=== PATIENT | female | born 1950 | race Caucasian/White ===

== ENCOUNTER → 2024-09-11 | Outpatient (CLI) | payer MEDICARE, BC, SELFPAY ==
--- NOTE | 2024-09-11 12:13 | MRI_ITS ---
PROCEDURE: SPINE LUMBAR (ROUTINE) 09/11/2024 REASON FOR EXAM: RADICULOPATHY TECHNIQUE: Multiplanar and multisequence images were obtained without IV contrast administration. COMPARISON: None FINDINGS: There is 25% loss of vertebral body height at L1 on the left aspect, with chronic features. There is grade 1 spondylolisthesis at L3-4, 0.5 cm. There is grade 1 retrolisthesis at L5-S1, 0.4 cm. Vertebral body marrow signal is normal. Intervertebral disc signal shows desiccation. The facets are aligned. The L1-L2 level: There is central and left paracentral disc extrusion with an attached fragment measuring 0.9 x 1.0 x 1.3 cm extending into the left lateral recess and proximal portion of the left neural foramen. There is mild right and severe left lateral recess stenosis. There is mild right and moderate left foraminal narrowing secondary to disc protrusion and facet hypertrophy. There is mild central canal stenosis. The L2-L3 level: There is broad-based central and right and left paracentral disc and osteophyte protrusion. There is moderate bilateral lateral recess stenosis. There is moderate bilateral foraminal narrowing secondary to disc protrusion and facet hypertrophy. There is severe central canal stenosis, partly secondary to ligamentous hypertrophy. The L3-L4 level: There is broad-based central and right and left paracentral disc and osteophyte protrusion. There is moderate bilateral lateral recess stenosis. There is no significant foraminal narrowing. There is severe central canal stenosis, partly secondary to ligamentous hypertrophy. The L4-L5 level: There is moderate central and right and left paracentral disc protrusion with increased signal in the left margin of the disc consistent with a fissure. There is mild bilateral lateral recess effacement. There is moderate right and mild left foraminal narrowing secondary to disc protrusion and facet hypertrophy. There is no central canal stenosis.. The L5-S1 level: There is disc extrusion which extends into the left lateral recess and posterior to the S1 level, attached at the margin, measuring 0.6 x 1.0 by 1.0 cm. There is moderate left lateral recess stenosis. There is moderate left foraminal narrowing secondary to disc protrusion and facet hypertrophy. There is no central canal stenosis.. The visualized conus shows normal signal characteristics. A 1.1 cm cyst is partly visible in the left kidney. MRI/Spine Lumbar (Routine) IMPRESSION: There is 25% loss of vertebral body height at L1 on the left aspect, with chron ic features. There is grade 1 spondylolisthesis at L3-4, 0.5 cm. There is grade 1 retrolisth esis at L5-S1, 0.4 cm. There is disc extrusion at L1-2 and L5-S1. There is mild central canal stenosis at L1-2, severe central canal stenosis at L2-3 and L3-4, with lateral recess and foraminal narrowing. Reading Location: [facility]
== END | disposition home or self-care (01) ==
PROVIDERS: Referring Provider Anesthesiology; Visit Provider Anesthesiology
DX: M54.16 Radiculopathy, lumbar region (principal)
CPT/HCPCS: 72148